=== PATIENT | female | born 1975 | race Caucasian/White ===

== ENCOUNTER 2024-04-09 15:15 | Inpatient (IN) | payer MEDICAID, OTHER ==
[~2024-04-09] VITALS: Ht 170.2 cm; Wt 84.8 kg
[2024-04-09 16:20] LABS: BASOPHILS # (AUTO) 0.1 K/UL (0.0-0.2); BASOPHILS % (AUTO) 0.8 % (0.0-2.0); EOSINOPHILS # (AUTO) 0.2 K/uL (0.0-0.7); EOSINOPHILS % (AUTO) 2.7 % (0.0-7.0); HEMATOCRIT 32.1 % (31.2-41.9); HEMOGLOBIN 9.8 g/dL (10.9-14.3); LYMPHOCYTES % (AUTO) 22.7 % (20.5-51.5); MEAN CORPUSCULAR HEMOGLOBIN 20.1 uug (24.7-32.8); MEAN CORPUSCULAR HGB CONC 30 g/dL (32.3-35.6); MEAN CORPUSCULAR VOLUME 66.2 fL (75.5-95.3); MONOCYTES # (AUTO) 0.9 K/uL (0.1-1.30); MONOCYTES % (AUTO) 9.6 % (0.0-11.0); NEUTROPHILS # (AUTO) 5.8 K/uL (1.8-8.9); NEUTROPHILS % (AUTO) 64.2 % (38.5-71.5); PLATELET COUNT (AUTO) 265 K/uL (179-408); RED BLOOD CELL COUNT(AUTO) 4.85 MIL/uL (3.63-4.92); RED CELL DISTRIBUTION WIDTH 18.1 % (12.3-17.7)
[2024-04-09 16:29] LABS: CALCIUM 8.7 mg/dL (8.5-10.1); CARBON DIOXIDE 23 mmol/L (21-32); CHLORIDE 108 mmol/L (98-107); CREATININE 0.8 mg/dL (0.6-1.3); GLUCOSE 117 mg/dL (74-106); SODIUM SERUM 141 mmol/L (136-145); UREA NITROGEN, BLOOD 12 mg/dL (7-18)
[2024-04-09] MEDS ORDERED: FUROSEMIDE 20 MG/2 ML VIAL ONE (16:52)
[2024-04-09] MEDS ORDERED: ASPIRIN 325 MG TABLET ONE (16:52)
[2024-04-09] MEDS ORDERED: NITROGLYCERIN OINT 1 GM PACKET TP ONE (16:52)
[2024-04-09] MEDS: NITROGLYCERIN OINT 1 GM PACKET TP ONE (16:55)
[2024-04-09] MEDS: ASPIRIN 325 MG TABLET PO ONE (16:56)
[2024-04-09 16:57] LABS: ALBUMIN 2.9 g/dL (3.4-5.0); BILIRUBIN,DIRECT 0.2 mg/dL (0.0-0.2); BILIRUBIN,TOTAL 0.5 mg/dL (0.2-1.0); TOTAL PROTEIN, SERUM 6.6 g/dL (6.4-8.2)
[2024-04-09] MEDS: FUROSEMIDE 20 MG/2 ML VIAL IV ONE (16:57)
[2024-04-09] MEDS: ACETAMINOPHEN 325 MG TABLET PO PRN (23:30)
[2024-04-09] MEDS ORDERED: ONDANSETRON 4 MG/2 ML VIAL IV PRN (23:30)
[2024-04-09] MEDS ORDERED: MAGNESIUM HYDROXIDE 30 ML LIQUID UDC PO PRN (23:30)
[2024-04-10] VITALS: BP 135/95; TEMP 98.1; O2SAT 95
[2024-04-10 04:00] VITALS: BP 116/82; TEMP 97.6; O2SAT 98
[2024-04-10 06:55] LABS: BASOPHILS # (AUTO) 0.1 K/UL (0.0-0.2); BASOPHILS % (AUTO) 1.1 % (0.0-2.0); EOSINOPHILS # (AUTO) 0.4 K/uL (0.0-0.7); EOSINOPHILS % (AUTO) 4.3 % (0.0-7.0); HEMATOCRIT 29.4 % (31.2-41.9); HEMOGLOBIN 9.1 g/dL (10.9-14.3); MEAN CORPUSCULAR HEMOGLOBIN 20.5 uug (24.7-32.8); MEAN CORPUSCULAR HGB CONC 31 g/dL (32.3-35.6); MEAN CORPUSCULAR VOLUME 65.9 fL (75.5-95.3); MONOCYTES # (AUTO) 0.8 K/uL (0.1-1.30); MONOCYTES % (AUTO) 10.2 % (0.0-11.0); NEUTROPHILS # (AUTO) 4.8 K/uL (1.8-8.9); NEUTROPHILS % (AUTO) 59.4 % (38.5-71.5); PLATELET COUNT (AUTO) 252 K/uL (179-408); RED BLOOD CELL COUNT(AUTO) 4.47 MIL/uL (3.63-4.92); RED CELL DISTRIBUTION WIDTH 18.2 % (12.3-17.7); WHITE BLOOD COUNT (AUTO) 8.2 K/uL (3.8-11.8)
[2024-04-10 07:00] LABS: DIFFERENTIAL COMMENT 1
[2024-04-10 07:07] LABS: CALCIUM 8.3 mg/dL (8.5-10.1); MAGNESIUM 1.7 mg/dL (1.8-2.4); PHOSPHOROUS 4.2 mg/dL (2.5-4.9)
[2024-04-10 07:21] VITALS: BP 144/97; TEMP 97.7; O2SAT 94
[2024-04-10] MEDS: ENOXAPARIN SODIUM 40 MG/0.4 ML DISP.SYRIN SQ SCH (08:45)
[2024-04-10] MEDS: LOSARTAN POTASSIUM 25 MG TABLET PO SCH (08:45)
[2024-04-10] MEDS: FUROSEMIDE 20 MG/2 ML VIAL IV SCH (08:45)
[2024-04-10] MEDS: SPIRONOLACTONE 25 MG TABLET PO SCH (08:45)
[2024-04-10] MEDS: MAGNESIUM OXIDE 400 MG TABLET PO ONE (11:47)
[2024-04-10 11:49] VITALS: BP 140/98; TEMP 97.4; O2SAT 94
[2024-04-10 12:37] LABS: *AMPHETAMINE, URINE POSITIVE (NEGATIVE); *BARBITURATE, URINE NEGATIVE (NEGATIVE); *BENZODIAZEPINE, URINE NEGATIVE (NEGATIVE); *CANNABINOID, URINE NEGATIVE (NEGATIVE); *COCCAINE, URINE NEGATIVE (NEGATIVE); *OPIATE, URINE NEGATIVE (NEGATIVE); *PHENCYCLIDINE SCREEN,URINE NEGATIVE (NEGATIVE); FENTANYL, URINE NEGATIVE (NEGATIVE)
[2024-04-10 16:00] VITALS: BP 124/84; TEMP 97.9; O2SAT 97
[2024-04-10 21:46] VITALS: BP 145/99; TEMP 97.6; O2SAT 94
[2024-04-11 05:12] VITALS: BP 139/90; TEMP 97.4; O2SAT 97
[2024-04-11 06:54] LABS: CALCIUM 8.6 mg/dL (8.5-10.1); CREATININE 1.1 mg/dL (0.6-1.3); MAGNESIUM 1.9 mg/dL (1.8-2.4); POTASSIUM 4.2 mmol/L (3.5-5.1)
[2024-04-11 08:40] VITALS: BP 139/90
[2024-04-11] MEDS: SILDENAFIL 20 MG TABLET PO SCH (08:43)
[2024-04-11] MEDS ORDERED: LOSA25TA27 PO (10:45)
[2024-04-11] MEDS ORDERED: SILD20TA PO (10:45)
[2024-04-11] MEDS ORDERED: SPIR25TA PO (10:45)
[2024-04-11] MEDS ORDERED: FURO-151 PO (11:27)
== END 2024-04-11 12:10 | disposition home or self-care (01) | DRG 194 ==
LOC: ER 15:19 → TELE3 22:49 → MEDSURG3 04-11 10:48
PROVIDERS: ADMIT Nurse Practitioner Acute Care; ATTEND Nurse Practitioner Acute Care
DX: I11.0 Hypertensive heart disease with heart failure (principal); D68.59 Other primary thrombophilia; I27.20 Pulmonary hypertension, unspecified; E44.0 Moderate protein-calorie malnutrition; I27.21 Secondary pulmonary arterial hypertension; E88.09 Other disorders of plasma-protein metabolism, not elsewhere classified; I50.82 Biventricular heart failure; I50.21 Acute systolic (congestive) heart failure; I42.0 Dilated cardiomyopathy; I42.7 Cardiomyopathy due to drug and external agent; T43.621S Poisoning by amphetamines, accidental (unintentional), sequela; E66.01 Morbid (severe) obesity due to excess calories; I07.1 Rheumatic tricuspid insufficiency; F17.210 Nicotine dependence, cigarettes, uncomplicated; B19.20 Unspecified viral hepatitis C without hepatic coma; D50.9 Iron deficiency anemia, unspecified; Z87.410 Personal history of cervical dysplasia; Z85.828 Personal history of other malignant neoplasm of skin; F15.10 Other stimulant abuse, uncomplicated; Z59.01 Sheltered homelessness; R94.31 Abnormal electrocardiogram [ECG] [EKG]
CPT/HCPCS: 36415; 71045; 83735; 84100; 84484; 85025; 85730; 93307; A4606; A4663; G0378; J1650; J1940